=== PATIENT | male | born 1960 | race Caucasian/White ===

== ENCOUNTER 2018-03-18 08:52 | Emergency (ER) | payer SELFPAY ==
[2018-03-18] MEDS ORDERED: Ondansetron ODT 8 MG TAB ONE (09:18)
[2018-03-18 09:52] LABS: Albumin 3.2 g/dL (3.5-5.0); Alkaline Phosphatase 331 U/L (40-150); Anion Gap 18 mmol/L (10-20); BUN (Urea Nitrogen) 17 mg/dL (8.4-25.7); Bilirubin, Total 8.3 mg/dL (0.2-1.2); CK (CPK) 26 U/L (30-200); Calc. Creatinine Clearance 0 mL/min (70-130); Calcium 8.4 mg/dL (7.8-10.44); Carbon Dioxide 24 mmol/L (22-29); Chloride 97 mmol/L (98-107); Estimated GFR-MDRD Greater than 90; Globulin 3.1 g/dL (2.4-3.5); Glucose 97 mg/dL (70-105); Potassium 4.1 mmol/L (3.5-5.1); Protein, Total 6.3 g/dL (6.0-8.3); Sodium 135 mmol/L (136-145)
[2018-03-18 10:14] LABS: ALT (SGPT) 5782 U/L (8-55); Lipase 21 U/L (8-78)
[2018-03-18 10:16] LABS: AST (SGOT) Greater than 3500 U/L (5-34)
[2018-03-18 10:28] LABS: CKMB 0.5 ng/mL (0-6.6); Troponin I Less than 0.010 ng/mL (< 0.028)
[2018-03-18 10:41] LABS: PTT 37.4 SEC (22.9-36.1); Prothrombin Time 32.2 SEC (12.0-14.7)
--- NOTE | 2018-03-18 10:50 | RAD ---
CHEST ONE VIEW: HISTORY: Vomiting. COMPARISON: 03/08/2015 FINDINGS: The lungs are clear. No pneumothorax or effusion. The cardiac silhouette and mediastinal contour ar e within normal limits. IMPRESSION: No acute intrathoracic abnormality. POS: [facility]
[2018-03-18 11:26] LABS: Acetaminophen Less than 6.0 mcg/mL (10.0-30.0); Alcohol Less than 10 mg/dL (Less than 10); Salicylate Less than 8.0 mg/dL (15.0-30.0)
--- NOTE | 2018-03-18 11:31 | ULT ---
ULTRASOUND GALLBLADDER RIGHT UPPER QUADRANT: Date: 03/18/18 HISTORY: Liver failure. Dehydration. COMPARISON: None. TECHNIQUE: Real-time Urbano scale with color Doppler and spectral analysis of the right upper quadrant of the abdo men is performed. FINDINGS: Visualized portions of the pancreas unremarkable. The liver echotexture is hypoechoic. Liver measures 14.9 cm in length. Portal vein is patent, antegrade flow. Common bile duct is normal. There is marked edema throughout the gallbladder wall. No pericholecystic fluid. The gallbladder is n ot distended. Right kidney measures 9.9 x 4.1 x 4.2 cm. IMPRESSION: Hypoechoic liver with severe wall thickening of the gallbladder. No gallbladder distention or choleli thiasis. Negative sonographic Arreola's sign. Differential includes acute hepatitis and congestive kathryn nges from heart failure. Acute cholecystitis is felt much less likely. POS: [facility]
[2018-03-18 11:45] LABS: Band 9 % (5-11); Differential Comment Plasma-cytoid Cells; Hemoglobin 14.8 g/dL (14.0-18.0); Lymphocytes 12 % (21-51); MDiff Complete? YES; Mean Corpuscular HGB CONC 31.8 g/dL (32.0-36.0); Mean Corpuscular Hemoglobin 27.6 pg (27.0-31.0); Mean Corpuscular Volume 86.7 fl (80.0-94.0); Mean Platelet Volume 9.9 fL (7.4-10.4); Neutrophil 67 % (42-75); PLT Morphology Comment Appears Adequate; Platelet Clumps SLIGHT; Platelet Count 130 thou/uL (130-400); RBC Distribution Width 12.9 % (11.5-14.5); RBC Morphology Normal; Reactive Lymphocytes 9 % (0-10); Red Blood Cell (RBC) Count 5.37 mill/uL (4.70-6.10); Reflex for Review?? YES; White Blood Cell (WBC) Count 10.3 thou/uL (4.8-10.8)
[2018-03-18] MEDS ORDERED: Metoclopramide HCl 10 MG/2 ML VIAL ONE (11:52)
[2018-03-18 12:01] LABS: Bilirubin Moderate (Negative); Blood, Urine Trace (Negative); Clarity CLEAR (Clear); Glucose, Urine (Dipstick) Negative (Negative); Leukocyte Trace (Negative); Nitrite Negative (Negative); Protein, Urine (Dipstick) 100 mg/dL (Neg-Trace); Specific Gravity, Urine 1.028 (1.002-1.036)
[2018-03-18 12:02] LABS: Bacteria/HPF None Seen HPF (None Seen); Hyaline Casts/LPF 0-3 HYALINE CAST LPF (0-3 Hyaline); Pathc Cast-AUWi Flag 0.14 (0-2.49); Squamous Epithelial 0-3 HPF (0-3)
[2018-03-18 12:04] LABS: Renal Epithelial None Seen HPF (0-3); Transitional Epithelial NONE SEEN HPF (0-3)
[2018-03-18 12:47] LABS: Albumin 2.6 g/dL (3.5-5.0); Alkaline Phosphatase 264 U/L (40-150); Anion Gap 13 mmol/L (10-20); BUN (Urea Nitrogen) 15 mg/dL (8.4-25.7); Bilirubin, Total 6.9 mg/dL (0.2-1.2); Calc. Creatinine Clearance 0 mL/min (70-130); Calcium 7.3 mg/dL (7.8-10.44); Carbon Dioxide 24 mmol/L (22-29); Chloride 103 mmol/L (98-107); Estimated GFR-MDRD Greater than 90; Globulin 2.3 g/dL (2.4-3.5); Glucose 69 mg/dL (70-105); Protein, Total 4.9 g/dL (6.0-8.3); Sodium 136 mmol/L (136-145)
[2018-03-18 12:59] LABS: ALT (SGPT) 4630 U/L (8-55)
[2018-03-18 13:02] LABS: AST (SGOT) Greater than 3500 U/L (5-34)
[2018-03-18 13:07] LABS: Hep C IgG Ab Non-Reactive (NonReactive); Hep C Index 0.23 S/CO (0-0.79)
[2018-03-18 13:08] LABS: Hep A IgM AB Non-Reactive (NonReactive); Hep A IgM S/CO 0.14 S/CO (0-0.79)
[2018-03-18 14:01] LABS: HBSAg Index 3540.61 S/CO (0-0.99); Hep B Surf Ag Reactive S/CO (NonReactive)
[2018-03-18 14:02] LABS: HBCM Index 48.85 S/CO (0-0.79); Hepatitis B Core IGM Abs Reactive (NonReactive)
[2018-03-18] MEDS ORDERED: Dextrose 50% Abboject 50 ML SYRINGE ONE (15:11)
[2018-03-18] MEDS ORDERED: Phytonadione 10 MG/ML AMP IM SCH (15:15)
[2018-03-18 15:33] LABS: Amphetamine Detected (NotDetected); Barbiturates Screen Not Detected (NotDetected); Benzodiazepine Screen Not Detected (NotDetected); Cocaine Metabolite Screen Not Detected (NotDetected); Medtox Control Line Valid? VALID (VALID); Medtox Reader # READER 1; Methadone Not Detected (NotDetected); Methamphetamine Detected (NotDetected); Opiate Screen Detected (NotDetected); Oxycodone Screen Not Detected (NotDetected); Phencyclidine (PCP) Not Detected (NotDetected); THC/Cannabinoid Screen Not Detected (NotDetected); Tricyclic Screen Not Detected (NotDetected)
[2018-03-19 08:41] LABS: Critical Call w/ Read Back 517543
[2018-03-19 12:32] LABS: ANA Symphony (Qualitative) Negative (Negative); dsDNA IgG Antibody 0.9 IU/mL (<10 Negative)
[2018-03-19 16:15] LABS: Hep B Surface AG-Rflx Sendout Confirm. indicated (Negative)
== END 2018-03-18 15:38 | disposition short-term general hospital (02) ==
LOC: ERS 08:52
DX: K72.00 Acute and subacute hepatic failure without coma (principal); R11.2 Nausea with vomiting, unspecified; E11.9 Type 2 diabetes mellitus without complications; E78.5 Hyperlipidemia, unspecified; I10 Essential (primary) hypertension; J45.909 Unspecified asthma, uncomplicated; F31.9 Bipolar disorder, unspecified; F20.9 Schizophrenia, unspecified; F17.210 Nicotine dependence, cigarettes, uncomplicated
CPT/HCPCS: 36415; 36416; 71045; 76705; 80053; 80074; 80306; 80307; 81003; 81015; 82550; 82553; 83516; 83540; 83690; 83880; 84484; 85025; 85060; 85610; 85730; 86038; 86225; 87340; 93005; 96361; 96365; 96372; 96375; J2765; J3430